=== PATIENT | female | born 1985 | race Caucasian/White ===

== ENCOUNTER 2016-09-19 16:04 | Emergency (ER) | payer SELFPAY ==
[2016-09-19 16:21] VITALS: BP 158/110; PULSE 106; RESP 20; TEMP 99.1; O2SAT 97
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
[2016-09-19] MEDS ORDERED: NS 500 ML IV ONE (16:35)
[2016-09-19] MEDS ORDERED: LET GEL TOPICAL 1 EA SYR TP ONE ×2 (17:23→17:31)
[2016-09-19] MEDS ORDERED: KETOROLAC 30 MG/1 ML SDV ONE (17:25)
[2016-09-19] MEDS ORDERED: KETOROLAC 30 MG/1 ML SDV IVP ONE (17:31)
== END 2016-09-19 18:40 | disposition home or self-care (01) ==
PROC: 0HQ0XZZ Repair Scalp Skin, External Approach (ICD-10-PCS; principal; 2016-09-19)
DX: S06.0X0A Concussion without loss of consciousness, initial encounter (principal); S01.01XA Laceration without foreign body of scalp, initial encounter; S60.511A Abrasion of right hand, initial encounter; S50.819A Abrasion of unspecified forearm, initial encounter; F17.200 Nicotine dependence, unspecified, uncomplicated; V28.4XXA Motorcycle driver injured in noncollision transport accident in traffic accident, initial encounter; Y92.410 Unspecified street and highway as the place of occurrence of the external cause; Y99.8 Other external cause status; Y93.89 Activity, other specified
CPT/HCPCS: 96374; J1885